=== PATIENT | male | born 1995 | race Hispanic/Latino ===

== ENCOUNTER 2017-07-09 21:14 | Inpatient (IN) | payer MEDICARE ==
[~2017-07-09] VITALS: Ht 167.6 cm; Wt 94.7 kg
[2017-07-09 22:30] LABS: BASOPHILS % (AUTO) 0.3 % (0.0-5.0); EOSINOPHILS % (AUTO) 1.7 % (0.0-8.0); HEMATOCRIT 45.7 % (42-54); LYMPHOCYTES % (AUTO) 24.6 % (21.0-51.0); MEAN CORPUSCULAR HEMOGLOBIN 27.5 pg (27.0-33.0); MEAN CORPUSCULAR HGB CONC 34.1 g/dL (32.0-36.0); MEAN CORPUSCULAR VOLUME 80.6 fL (80-100); MONOCYTES % (AUTO) 6.9 % (3.0-13.0); NEUTROPHILS % (AUTO) 66.5 % (40.0-77.0); PLATELET COUNT (AUTO) 291 K/uL (130-400); RED BLOOD CELL COUNT(AUTO) 5.66 MIL/uL (4.50-6.20); RED CELL DISTRIBUTION WIDTH 13.6 % (11.0-15.5)
[2017-07-09] MEDS ORDERED: SODIUM CHLORIDE 0.9% 1000ML 1,000 ML IV ONE (22:37)
[2017-07-09 22:42] LABS: CREATININE 0.8 mg/dL (0.5-1.5); POTASSIUM 3.5 mmol/L (3.5-5.1)
[2017-07-09 22:46] LABS: ALBUMIN 3.9 g/dL (3.5-5.0); BILIRUBIN,TOTAL 0.3 mg/dL (0.2-1.0); TOTAL PROTEIN, SERUM 8.2 g/dL (6.0-8.3)
[2017-07-10] MEDS ORDERED: SODIUM CHLORIDE 0.9% 1000ML 1,000 ML IV ONE (04:16)
[2017-07-10 04:50] VITALS: BP 132/74
[2017-07-10 05:50] LABS: HEMATOCRIT 43.2 % (42-54); MEAN CORPUSCULAR HEMOGLOBIN 27.2 pg (27.0-33.0); MEAN CORPUSCULAR HGB CONC 33.7 g/dL (32.0-36.0); MEAN CORPUSCULAR VOLUME 80.8 fL (80-100); NUCLEATED RED BLOOD CELLS 0.1 % (0.0-0.19); PLATELET COUNT (AUTO) 259 K/uL (130-400); RED BLOOD CELL COUNT(AUTO) 5.35 MIL/uL (4.50-6.20); RED CELL DISTRIBUTION WIDTH 13.8 % (11.0-15.5); WHITE BLOOD COUNT (AUTO) 8.3 K/uL (4.8-10.8)
[2017-07-10 06:04] LABS: CREATININE 0.7 mg/dL (0.5-1.5); POTASSIUM 3.4 mmol/L (3.5-5.1)
[2017-07-10 06:05] LABS: INR 1.02 (0.85-1.15); PARTIAL THROMBOPLASTIN TIME 26.7 SEC (26.3-35.5); PROTHROMBIN TIME 10.7 SEC (9.6-11.6)
[2017-07-10] MEDS ORDERED: SODIUM CHLORIDE 0.9% 1000ML 1,000 ML IV SCH (06:30)
[2017-07-10] MEDS ORDERED: KETOROLAC TROMETHAMINE 15MG/ML IV PRN (06:30)
[2017-07-10] MEDS ORDERED: ONDANSETRON HCL 4 MG/2 ML VIAL IVP PRN (06:30)
[2017-07-10 07:39] VITALS: BP 130/78
[2017-07-10] MEDS ORDERED: ONDANSETRON HCL MDV 20ML 2 MG/ML VIAL IVP PRN (07:47)
[2017-07-10 11:02] VITALS: BP 122/66
[2017-07-10 15:52] VITALS: BP 112/63
[2017-07-10 19:30] VITALS: BP 126/74
[2017-07-11] VITALS (22 sets, daily range): BP systolic 95–135; BP diastolic 52–92
[2017-07-11 06:12] LABS: HEMATOCRIT 44.3 % (42-54); MEAN CORPUSCULAR HEMOGLOBIN 27.7 pg (27.0-33.0); MEAN CORPUSCULAR HGB CONC 34.3 g/dL (32.0-36.0); MEAN CORPUSCULAR VOLUME 80.9 fL (80-100); PLATELET COUNT (AUTO) 285 K/uL (130-400); RED BLOOD CELL COUNT(AUTO) 5.48 MIL/uL (4.50-6.20); RED CELL DISTRIBUTION WIDTH 13.7 % (11.0-15.5); WHITE BLOOD COUNT (AUTO) 8.6 K/uL (4.8-10.8)
[2017-07-11 06:29] LABS: ALBUMIN 3.5 g/dL (3.5-5.0); BILIRUBIN,TOTAL 0.6 mg/dL (0.2-1.0); CREATININE 0.6 mg/dL (0.5-1.5); POTASSIUM 3.6 mmol/L (3.5-5.1); TOTAL PROTEIN, SERUM 7.6 g/dL (6.0-8.3)
[2017-07-11] MEDS ORDERED: HEPARIN SODIUM 1000UNIT/ML 10ML VIAL ONE (11:50)
[2017-07-11] MEDS ORDERED: PROPOFOL 10 MG/ML 20ML VIAL IV ONE (12:22)
[2017-07-11] MEDS ORDERED: SUCCINYLCHOLINE 200MG/10ML SYR ONE (12:22)
[2017-07-11] MEDS ORDERED: GLYCOPYRROLATE 0.2 MG/ML 5 ML VIAL ONE (12:22)
[2017-07-11] MEDS ORDERED: MIDAZOLAM HCL 1 MG/ML 2ML VIAL ONE (12:22)
[2017-07-11] MEDS ORDERED: DEXAMETHASONE SOD PHOSPHATE 10MG/ML 1ML VIAL ONE (12:22)
[2017-07-11] MEDS ORDERED: NEOSTIGMINE 5MG/5ML SYR IV ONE (12:22)
[2017-07-11] MEDS ORDERED: LIDOCAINE PF 2% 5ML ABBOJECT ONE (12:22)
[2017-07-11] MEDS ORDERED: ONDANSETRON HCL 4 MG/2 ML VIAL ONE (12:22)
[2017-07-11] MEDS ORDERED: FENTANYL CITRATE PF 50 MCG/1 ML 2ML VIAL ONE ×2 (12:23→12:59)
[2017-07-11] MEDS ORDERED: EPHEDRINE SULFATE 50 MG/ML AMPULE ONE (13:43)
[2017-07-11] MEDS ORDERED: ACETAMINOPHEN-CODEINE 300/30MG TAB PO PRN (14:00)
[2017-07-11] MEDS ORDERED: MORPHINE SULFATE 2 MG/ML 1ML SYG IV PRN (14:00)
[2017-07-11] MEDS ORDERED: MEPERIDINE-PF 25 MG/ML SYG ONE (14:19)
[2017-07-11] MEDS: SODIUM CHLORIDE 0.9% 1000ML 1,000 ML IV SCH (16:00)
[2017-07-11] MEDS: ACETAMINOPHEN-CODEINE 300/30MG TAB PO PRN (21:21)
[2017-07-12] VITALS: BP 137/75
[2017-07-12 04:00] VITALS: BP 133/79
[2017-07-12] MEDS: ACETAMINOPHEN-CODEINE 300/30MG TAB PO PRN (08:01)
[2017-07-12 08:07] VITALS: BP 131/68
[2017-07-12] MEDS: SODIUM CHLORIDE 0.9% 1000ML 1,000 ML IV SCH (09:56)
[2017-07-12 12:00] VITALS: BP 125/81
[2017-07-12] MEDS ORDERED: ACET1TAB12 PO (12:18)
[2017-07-12 16:00] VITALS: BP 132/72
[2017-07-12] MEDS ORDERED: BISACODYL 10 MG SUPP.RECT RC ONE (16:00)
== END 2017-07-12 17:13 | disposition home or self-care (01) | DRG 418 ==
LOC: EDH 21:14 → EDHIP 07-10 01:49 → OBSVTOIN 07-10 01:49 → 3DH 07-10 04:38
PROVIDERS: ADMIT Family Medicine; ATTEND Family Medicine
PROC: 0FT44ZZ Resection of Gallbladder, Percutaneous Endoscopic Approach (ICD-10-PCS; principal; 2017-07-11 12:36)
DX: K80.00 Calculus of gallbladder with acute cholecystitis without obstruction (principal); F84.0 Autistic disorder; E66.01 Morbid (severe) obesity due to excess calories; K80.10 Calculus of gallbladder with chronic cholecystitis without obstruction; J45.909 Unspecified asthma, uncomplicated; Z68.33 Body mass index [BMI] 33.0-33.9, adult; Z82.49 Family history of ischemic heart disease and other diseases of the circulatory system; Z83.3 Family history of diabetes mellitus
CPT/HCPCS: 36415; 76705; 80048; 80053; 83690; 85025; 85027; 85610; 85730; 88304; 93005; J0330; J1100; J1644; J1885; J2001; J2175; J2250; J2405; J2704; J2710; J3010; J3490; J7030